=== PATIENT | female | born 1990 | race African-American/Black ===

== ENCOUNTER 2020-05-01 01:35 | Emergency (ER) | payer OTHER ==
[~2020-05-01] VITALS: Ht 177.8 cm; Wt 72.6 kg
[2020-05-01 01:50] VITALS: BP 152/90
--- NOTE | 2020-05-01 01:50 | NUR ---
ED Nurse Note: Patient walked in from home d/t right lower quadrant pain that started two weeks ago, patient reports intermittent dull and sometimes cramping pain, nonradiating 12/08. Patient aao x 4 and ambulatory with steady gait. Patient changed into gown and placed on school lunch monitor. No acute distress noted.
[2020-05-01] MEDS ORDERED: Ketorolac 30mg Inj IV ONE (02:00)
--- NOTE | 2020-05-01 02:08 | Emergency Room Report ---
History of Present Illness General Chief Complaint: Abdominal Pain Source: Patient Present Illness HPI 29-year-old female to male transition here with 2 weeks of right lower quad abdominal pain. The patient exercises regularly and says that during sit ups and straining and lifting heavy weights they feel right lower quadrant rashi pain. It is gone to the point that they feel it constantly right now. Pain is dull in nature, located in the right lower quadrant, does not otherwise radiate. No fevers, chills, chest pain, palpitation of shortness of breath, back pain, other abdominal pain, nausea, vomiting, diarrhea, dysuria, constipation. 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 COVID-19 Screening: Negative COVID-19 COVID-19 Testing Source: unk Patient History Last Menstrual Period: 2013 Nursing Documentation-[facility] Past Medical History: No Stated History Review of Systems All Other Systems: negative except mentioned in HPI Physical Exam Vital Signs Date Time Temp Pulse Resp B/P (MAP) Pulse Ox O2 Delivery O2 Flow Rate FiO2 05/01/20 01:39 97.0 65 15 167/93 (117) 99 Room Air Sp02 EP Interpretation: reviewed, normal General Appearance: no apparent distress, alert, non-toxic Head: normocephalic, atraumatic Eyes: bilateral eye normal inspection, bilateral eye PERRL ENT: hearing grossly normal, normal pharynx, no angioedema, normal voice Neck: full range of motion, supple/symm/no masses Respiratory: chest non-tender, lungs clear, normal breath sounds, speaking full sentences Cardiovascular #1: regular rate, rhythm, no edema Cardiovascular #2: 2+ carotid (R), 2+ carotid (L), 2+ radial (R), 2+ radial (L), 2+ dorsalis pedis (R), 2+ dorsalis pedis (L) Gastrointestinal: normal bowel sounds, soft, non-distended, no guarding, no rebound, other - Very mild right lower quadrant tenderness on palpation. No rebound or guarding. Negative Rovsing sign. Negative Lambert sign Rectal: deferred Genitourinary: normal inspection, no CVA tenderness Musculoskeletal: back normal, normal range of motion, gait/station normal, non- tender Neurologic: alert, motor strength/tone normal, oriented x3, sensory intact, responsive, speech normal Psychiatric: judgement/insight normal, memory normal, mood/affect normal, no suicidal/homicidal ideation Lymphatic: no adenopathy Medical Decision Making Diagnostic Impression: Primary Impression: Abdominal pain ER Course Laboratory Tests Test 05/01/20 01:50 05/01/20 02:00 White Blood Count 8.1 K/UL (4.8-10.8) Red Blood Count 5.20 M/UL (4.20-5.40) Hemoglobin 15.0 G/DL (12.0-16.0) Hematocrit 42.8 % (37.0-47.0) Mean Corpuscular Volume 82 FL (80-99) Mean Corpuscular Hemoglobin 28.8 PG (27.0-31.0) Mean Corpuscular Hemoglobin Concent 34.9 G/DL (32.0-36.0) Red Cell Distribution Width 13.8 % (11.6-14.8) Platelet Count 202 K/UL (150-450) Mean Platelet Volume 6.9 FL (6.5-10.1) Neutrophils (%) (Auto) 55.3 % (45.0-75.0) Lymphocytes (%) (Auto) 34.5 % (20.0-45.0) Monocytes (%) (Auto) 6.7 % (1.0-10.0) Eosinophils (%) (Auto) 1.8 % (0.0-3.0) Basophils (%) (Auto) 1.7 % (0.0-2.0) Sodium Level 136 MMOL/L (136-145) Potassium Level 3.3 MMOL/L (3.5-5.1) L Chloride Level 98 MMOL/L (98-107) Carbon Dioxide Level 30 MMOL/L (21-32) Blood Urea Nitrogen 13 mg/dL (7-18) Creatinine 1.0 MG/DL (0.55-1.30) Estimated Glomerular Filtration Rate > 60 mL/min (>60) Glucose Level 99 MG/DL (74-106) Calcium Level 8.8 MG/DL (8.5-10.1) Total Bilirubin 0.7 MG/DL (0.2-1.0) Aspartate Amino Transferase (AST) 34 U/L (15-37) Alanine Aminotransferase (ALT) 31 U/L (12-78) Alkaline Phosphatase 58 U/L (46-116) Total Protein 7.7 G/DL (6.4-8.2) Albumin 4.1 G/DL (3.4-5.0) Globulin 3.6 g/dL Albumin/Globulin Ratio 1.1 (1.0-2.7) Lipase 162 U/L (73-393) Urine Color Pale yellow Urine Appearance Clear Urine pH 7 (4.5-8.0) Urine Specific [place] 1.010 (1.005-1.035) Urine Protein Negative (NEGATIVE) Urine Glucose (UA) Negative (NEGATIVE) Urine Ketones Negative (NEGATIVE) Urine Blood Negative (NEGATIVE) Urine Nitrite Negative (NEGATIVE) Urine Bilirubin Negative (NEGATIVE) Urine Urobilinogen Normal MG/DL (0.0-1.0) Urine Leukocyte Esterase 1+ (NEGATIVE) H Urine RBC 0-2 /HPF (0 - 2) Urine WBC 0-2 /HPF (0 - 2) Urine Squamous Epithelial Cells Few /LPF (NONE/OCC) Urine Bacteria None /HPF (NONE) Urine HCG, Qualitative Negative (NEGATIVE) CT abd pel: IMPRESSION: 1. Appendix not well-visualized. 2. No obvious secondary signs for appendicitis at this time. 3. As indicated, short-term follow-up CT could be obtained with both oral and IV contrast to assess for any change. 4. Nonspecific bowel gas pattern with moderate retained stool. No free fluid or free air 29-year-old otherwise healthy female transitioning to male here with right lower quadrant abdominal pain for 2 weeks. Patient had a largely benign physical examination. CBC, CMP, urinalysis all unremarkable. CT abdomen pelvis showed moderate stool burden but did not show any other acute pathology. No evidence of appendicitis, hernia, colitis. Patient was given a prescription for Colace and told to follow-up with primary care and use [id number] pain medication as needed. Discharged in stable condition. Last Vital Signs Date Time Temp Pulse Resp B/P (MAP) Pulse Ox O2 Delivery O2 Flow Rate FiO2 05/01/20 01:39 97.0 65 15 167/93 (117) 99 Room Air Scripts Docusate Sodium* (COLACE*) 100 Mg Capsule 100 MG ORAL DAILY for 10 Days, CAP Prov: Zhao Caldwell M.D. 05/01/20 Referrals: [facility],REFERRING (PCP) Zhao Caldwell M.D. May 01, 2020 02:08
[2020-05-01 02:15] LABS: BASOPHILS % (AUTO) 1.7 % (0.0-2.0); EOSINOPHILS % (AUTO) 1.8 % (0.0-3.0); HEMATOCRIT 42.8 % (37.0-47.0); LYMPHOCYTES % (AUTO) 34.5 % (20.0-45.0); MEAN CORPUSCULAR VOLUME 82 FL (80-99); MONOCYTES % (AUTO) 6.7 % (1.0-10.0); NEUTROPHILS % (AUTO) 55.3 % (45.0-75.0); PLATELET COUNT 202 K/UL (150-450); RED CELL DISTRIBUTION WIDTH 13.8 % (11.6-14.8); WHITE BLOOD COUNT 8.1 K/UL (4.8-10.8)
[2020-05-01] MEDS ORDERED: Omnipaque-300 100ml vial INJ PRN (02:15)
[2020-05-01 02:16] LABS: APPEARANCE,URINE CLEAR; BILIRUBIN, URINE NEGATIVE (NEGATIVE); COLOR,URINE PALE YELLOW; GLUCOSE, URINE (UA) NEGATIVE (NEGATIVE); KETONES,URINE NEGATIVE (NEGATIVE); LEUKOCYTE ESTERASE ,URINE 1+ (NEGATIVE); NITRITE,URINE NEGATIVE (NEGATIVE); PH,URINE 7 (4.5-8.0); PROTEIN,URINE NEGATIVE (NEGATIVE); UROBILINOGEN,URINE NORMAL MG/DL (0.0-1.0)
[2020-05-01 02:30] LABS: ALANINE AMINOTRANSFERASE 31 U/L (12-78); ALBUMIN 4.1 G/DL (3.4-5.0); ALBUMIN/GLOBULIN RATIO 1.1 (1.0-2.7); ALKALINE PHOSPHATASE 58 U/L (46-116); ASPARTATE AMINO TRANSFERASE 34 U/L (15-37); BILIRUBIN,TOTAL 0.7 MG/DL (0.2-1.0); BLOOD UREA NITROGEN 13 mg/dL (7-18); CALCIUM 8.8 MG/DL (8.5-10.1); CARBON DIOXIDE 30 MMOL/L (21-32); CHLORIDE 98 MMOL/L (98-107); POTASSIUM 3.3 MMOL/L (3.5-5.1); SODIUM 136 MMOL/L (136-145)
--- NOTE | 2020-05-01 04:10 | Diagnostic Imaging Report ---
EXAM: CT Abdomen and Pelvis With Intravenous Contrast CLINICAL HISTORY: Right lower quadrant pain TECHNIQUE: Axial computed tomography images of the abdomen and pelvis with intravenous contrast. CTDI is 4.90 mGy and DLP is 268.60 mGy-cm. One or more of the following dose reduction techniques were used: automated exposure control, adjustment of the mA and/or kV according to patient size, use of iterative reconstruction technique. COMPARISON: No relevant prior studies available. FINDINGS: Lung bases: Unremarkable. No mass. No consolidation. ABDOMEN: Liver: Unremarkable. No mass. Gallbladder and bile ducts: Unremarkable. No calcified stones. No ductal dilation. Pancreas: Unremarkable. No mass. No ductal dilation. Spleen: Unremarkable. No splenomegaly. Adrenals: Unremarkable. No mass. Kidneys and ureters: No evidence for obstructive uropathy. Stomach and bowel: Paucity of intra-abdominal fat and absence oral contrast limit evaluation of the GI tract. Moderate retained stool. No focal small bowel dilatation. Nonspecific bowel gas pattern with few scattered air-fluid levels. No mucosal thickening. PELVIS: Appendix: Multiple fluid-filled bowel loops seen in the right lower quadrant. Appendix not well-visualized. As indicated, consider follow- up CT with oral contrast for better visualization as indicated. Bladder: Unremarkable. No mass. Reproductive: Uterus not well-visualized which may reflect surgical absence. ABDOMEN and PELVIS: Intraperitoneal space: Unremarkable. No free air. No significant fluid collection. Bones/joints: No acute fracture. No dislocation. Soft tissues: Soft tissue stranding in the subcutaneous fat over the right gluteal region, nonspecific. This may represent site of subcutaneous injection. Vasculature: Unremarkable. No abdominal aortic aneurysm. Lymph nodes: Unremarkable. No enlarged lymph nodes. IMPRESSION: 1. Appendix not well-visualized. 2. No obvious secondary signs for appendicitis at this time. 3. As indicated, short-term follow-up CT could be obtained with both oral and IV contrast to assess for any change. 4. Nonspecific bowel gas pattern with moderate retained stool. No free fluid or free air
[2020-05-01] MEDS ORDERED: COLACE100 MG ORAL (04:11)
[2020-05-01 04:15] VITALS: BP 133/79
--- NOTE | 2020-05-01 04:15 | NUR ---
ER DISCHARGE NOTE: Patient is cleared to be discharged per ERMD, pt is aox4, on room air, with stable vital signs. pt was given dc and prescription instructions, pt was able to verbalize understanding, pt id band and iv site removed intact without complications. pt is able to ambulate with steady gait. pt took all belongings. pt stable upon discharge.
== END 2020-05-01 04:15 | disposition home or self-care (01) ==
LOC: EMR 01:47
DX: R10.31 Right lower quadrant pain (principal)
CPT/HCPCS: 36415; 74177; 80053; 81003; 81025; 83690; 85025; 96374; J1885; Q9965; Z7502; 99284